=== PATIENT | female | born 1970 | race Caucasian/White ===

== ENCOUNTER → 2016-09-07 00:27 | Emergency (ER) | payer OTHER ==
[2016-09-07 00:48] VITALS: BP 102/69
--- NOTE | 2016-09-07 01:49 | ED ---
Skin Complaint - HPI Summary HPI Summary: Patient presents to ED with puncture wound to the medial elbow. She states she accidentally punctured her arm with a knife earlier this evening with mild blood loss. She was able to bandage it, but later while out dancing began to feel light headed and dizzy with mild nausea. She then noticed a fluid collection over the elbow without color changes. She denies erythema, warmth or drainage from the area. Denies numbness, tingling, or temperature changes. She is able to have full ROM over the elbow and wrist and fingers. She states she was only concerned d/t the dizziness and felt it might be related. She has very low BP at baseline with normal INDRA range of systolic <100. Denies any other symptoms. - History of Current Complaint Chief Complaint: EDExtremityUpper Time Seen by Provider: 09/07/16 00:50 Stated Complaint: LEFT ELBOW PAIN Hx Obtained From: Patient Onset/Duration: Started Hours Ago Skin Exposure Onset/Duration: Hours Ago Timing: Constant Onset Severity: Mild Current Severity: Mild Pain Intensity: 3 Pain Scale Used: 0-10 Numeric Skin Location: Discrete - right elbow Character: Swelling, Pain Aggravating Symptom(s): Nothing Alleviating Symptom(s): Nothing Associated Signs & Symptoms: Lightheadedness Related History: Trauma - Allergy/Home Medications Allergies/Adverse Reactions: Allergies Allergy/AdvReac Type Severity Reaction Status Date / Time Penicillins [PCN] Allergy Hives Verified 09/07/16 00:45 PMH/Surg Hx/FS Hx/Imm Hx Previously Healthy: Yes - Immunization History Hx Pertussis Vaccination: No Immunizations Up to Date: Unable to Obtain/Confirm Infectious Disease History: No Infectious Disease History: Denies: Traveled Outside the [place] in Last 30 Days - Social History Occupation: Employed Full-time Lives: With Family Alcohol Use: Weekly Alcohol Amount: 5 days per week, 1/2 glass wine Hx Substance Use: No Substance Use Type: Reports: None Hx Tobacco Use: No Smoking Status (MU): Former Smoker Review of Systems Constitutional: Negative Eyes: Negative Cardiovascular: Negative Respiratory: Negative Positive: no symptoms reported, see HPI Positive: Myalgia Positive: Other - small closed .5cm puncture wound to the medial side of the left elbow without ecchymosis and with slight swelling Neurological: Negative Psychological: Normal All Other Systems Reviewed And Are Negative: Yes Physical Exam Triage Information Reviewed: Yes Vital Signs On Initial Exam: Initial Vitals Temp Pulse Resp BP Pulse Ox 97.5 F 73 16 88/63 99 09/07/16 00:30 09/07/16 00:30 09/07/16 00:30 09/07/16 00:30 09/07/16 00:30 Vital Signs Reviewed: Yes Appearance: Positive: Well-Appearing, Well-Nourished Skin: Positive: Warm, Skin Color Reflects Adequate Perfusion Eyes: Positive: Normal, GLADYS, Conjunctiva Clear Neck: Positive: Supple, No Lymphadenopathy Respiratory/Lung Sounds: Positive: Clear to Auscultation, Breath Sounds Present Cardiovascular: Positive: Normal, RRR, Pulses are Symmetrical in both Upper and Lower Extremities Musculoskeletal: Positive: Normal, Strength/ROM Intact, Pain @ - left elbow with flexion Neurological: Positive: Sensory/Motor Intact, Alert, Oriented to Person Place, Time, Speech Normal Psychiatric: Positive: Normal Diagnostics - Vital Signs Vital Signs Temp Pulse Resp BP Pulse Ox 09/07/16 00:44 97.5 F 73 16 102/69 99 09/07/16 00:30 97.5 F 73 16 88/63 99 - Laboratory Lab Statement: Any lab studies that have been ordered have been reviewed, and results considered in the medical decision making process. Course/Dx - Course Course Of Treatment: small closed .5cm puncture wound to the medial side of the left elbow without ecchymosis and with slight swelling after knife wound from kitchen sink. She endorses dizziness and nausea 1 hour s/p injury. Low BP at baseline. Treatment options explained. Dg wrapped and patient tolerated well. Return precautions given. - Differential Diagnoses - Skin Complaint Differential Diagnoses: Other - puncture wound, laceration, abrasion, swelling, abscess - Diagnoses Provider Diagnoses: Puncture wound of elbow Discharge - Discharge Plan Condition: Stable Disposition: HOME Patient Education Materials: Puncture Wound (ED) Referrals: Non Staff,Doctor [Primary Care Provider] - Additional Instructions: Follow up with PCP as needed Continue with dg wrap x 2-3 days. If you develop redness, streaks of red around the wound, swelling, abnormal drainage or you develop a fever - you need to come back to the ED right away.
== END | disposition home or self-care (01) ==
LOC: ED 00:27
DX: R42 Dizziness and giddiness (principal); Z87.891 Personal history of nicotine dependence; S51.032A Puncture wound without foreign body of left elbow, initial encounter; W26.0XXA Contact with knife, initial encounter; Y93.9 Activity, unspecified; Y92.9 Unspecified place or not applicable; Y99.9 Unspecified external cause status
CPT/HCPCS: 99281